=== PATIENT | female | born 1950 | race Caucasian/White ===

== ENCOUNTER 2022-01-01 14:00 | Outpatient (RCR) | payer MEDICARE, OTHER, SELFPAY | END 2022-04-05 14:32 | disposition home or self-care (01) | PROVIDERS: PCP Student in an Organized Health Care Education/Training Program; Visit Provider Physician Assistant Medical | DX: M79.604 Pain in right leg (principal); Z51.89 Encounter for other specified aftercare | CPT/HCPCS: 97110; 97140; 97162 ==